=== PATIENT | female | born 2000 | race Caucasian/White ===

== ENCOUNTER 2025-05-30 14:12 | Outpatient (OUT) | payer OTHER, SELFPAY ==
[2025-05-31 11:10] LABS: Rapid Plasma Reagin, Quant Non Reactive titer (NonRea<1:1)
== END 2025-05-30 14:13 | disposition home or self-care (01) ==
LOC: LAB 14:17
PROVIDERS: Visit Provider Obstetrics & Gynecology
DX: Z20.2 Contact with and (suspected) exposure to infections with a predominantly sexual mode of transmission (principal); Z33.2 Encounter for elective termination of pregnancy; Z01.419 Encounter for gynecological examination (general) (routine) without abnormal findings
CPT/HCPCS: 36415; 84702; 86592; 87340; 87389; 88175

== ENCOUNTER 2025-05-30 22:34 | Outpatient (REF) | payer OTHER, SELFPAY ==
--- OUTSIDE RECORDS SUMMARY | 2024-05-03 09:08 | XMS_ITS | Continuity of Care Document ---
Author Organization [facility] Address [address] [place] [phone] Phone Care Team Providers Care Head Inspector Name Role Phone NIALL Stewart, PM, Jigna Unavailable Unavailable Allergies, Adverse Reactions, Alerts Substance Reaction Status Criticality No Known Allergies Active No Inform ation Medications Medication Instructions Dosage Effective Dates (start - stop) Status Comments sertraline 50 mg tablet take 1 tablet by oral route every day 50 MG - Active Depo-Provera 150 mg/mL intramuscular suspension inject 1 milliliter by intramuscular route every 3 months 150 MG - Active Procedures Procedure Date OFFICE/OUTPATIENT VISIT, EST LDL-C <100 MG/DL DIAST BP 80-89 MM HG SYST BP < 130 MM HG OFFICE/OUTPATIENT VISIT, EST ROUTINE VENIPUNCTURE OFFICE/OUTPATIENT VISIT, EST Bp scrn perf rec interval LDL-C <100 MG/DL DIAST BP < 80 MM HG SYST BP < 130 MM HG MED LIST DOCD IN RD RVW MEDS BY RX/DR IN RD PT TOBACCO USE DONE RCVD TLK Pos clin depres scrn f/u doc PSYTX PT&/FAMILY 60 MINUTES ROUTINE VENIPUNCTURE OFFICE/OUTPATIENT VISIT, EST PSYTX PT&/FAMILY 60 MINUTES PSYTX PT&/FAMILY 60 MINUTES ROUTINE VENIPUNCTURE PREV VISIT, NEW, AGE 18-39 Advance Directives Directive Yes / No Effective Date File Name No Information Encounters Encounter Description Practice Location Reason(s) For Visit Diagnoses Date Provider Providers Copied on Encounter [facility], [address] [place] [address], [id number] , tel: [phone] OVE Encounter for general file keeper exam w/o abnormal findingEncounter for general file keeper exam w/o abnormal finding [facility] [address] [place] [address], [id number], . tel: [phone] OFFICE/OUTPA TIENT VISIT, [facility], [address] [place] [address], [id number] , tel: [phone] [facility] F/U Anx & Dep (chief complaint) Dysthymic disorderGeneralized Anxiety DisorderBorderline personality disorderPTSD (post-traumatic stress disorder)Body mass index [BMI] 19.9 or less, adultMarijuana dependenceCaffeine use [address] [facility]. [address] [place] [address], [id number], . tel: [phone] OFFICE/OUTPA TIENT VISIT, [facility], [address] [place] [address], [id number] , tel: [phone] [facility] weight f/u (chief complaint) Body mass index [BMI] 19.9 or less, adultWeight loss, unintentionalTobacc o dependenceMarijuana dependenceDysthymic disorderAsymptomati c bradycardia 4 Reyna Gutierrez. [address] [place] [address], [id number], . tel: [phone] [facility], [address] [place] [address], [id number] , tel: [phone] [place] [address] Weight loss, unintentional 4 Reyna PIÑA-Anthony Gutierrez. [address] [place] [address], [id number], [place]. tel: [phone] OFFICE/OUTPA TIENT VISIT, [facility], [address], [place], [id number] , [place] tel: [phone] [facility] Establish Care (chief complaint) Dysthymic disorderGeneralized Anxiety DisorderBody mass index [BMI] 19.9 or less, adultBorderline personality disorderPTSD (post-traumatic stress disorder)Weight loss, unintentional 4 Wai Benito. [address] [place] [address], [id number], [place]. tel: [phone] PSYTX PT&/FAMILY 60 MINUTES [facility], [address] [place] [address], [id number] , [place] tel: [phone] [facility] Dysthymic disorderGeneralized Anxiety DisorderBorderline personality disorderPTSD (post-traumatic stress disorder)Weight loss, unintentionalBody mass index [BMI] 19.9 or less, adult 4 Baus Camilo Smith . [address] [place] [address], [address], [place]. tel: [phone] [facility], [address] [place] [address], [id number] , [place] tel: [phone] [facility] lab draw (chief complaint) Weight loss, unintentionalDysthy marianne disorderGeneralized Anxiety Disorder 4 Reyna PIÑA-Anthony Gutierrez. [address] [place], [address], [place]. tel: [phone] OFFICE/OUTPA TIENT VISIT, [facility], [address] [place] [address], [id number] , [place] tel:+ [phone] [facility] review labs (chief complaint) Decreased thyroid stimulating hormone (TSH) levelDysthymic disorderPerson consulting for explanation of examination or test findingsBody mass index [BMI] 19.9 or less, adult 4 [facility] AUTOMATIC OVEN OPERATOR GEOSPATIAL IMAGERY INTELLIGENCE ANALYST-C Brenda. [address] [place], [address], [place]. tel: [phone] PSYTX PT&/FAMILY 60 MINUTES [facility], [address] [place] [address], [id number] , [place] tel: [phone] [facility] Dysthymic disorderGeneralized Anxiety Disorder 4 [facility] Ps[facility] D Evane . [address] [place], [address], [place]. tel: [phone] PSYTX PT&/FAMILY 60 MINUTES [facility], [address] [place] [address], [id number] , [place] tel: [phone] [facility] Dysthymic disorderGeneralized Anxiety DisorderDecreased thyroid stimulating hormone (TSH) level 3 [facility] Ps[facility] Dennis Smith . [address] [place], [address], [place]. tel: [phone] [facility], [address] [place] [address], [id number] , [place] tel: [phone] [facility] Olivier Zimmer Decreased thyroid stimulating hormone (TSH) levelWeight loss, unintentional 3 [facility] GE[facility] INTELLIGENCE ANALYST-C Brenda. [address] [place], [address], [place]. tel: [phone] PREV VISIT, NEW, AGE 18-39 [facility], [address] [place] [address], [id number] , [place] tel: [phone] [facility] Establish care (chief complaint) Lab draw (chief complaint) NauseaEncounter for general adult medical examination without abnormal findingsMarijuana dependenceTobacco dependenceMother currently breast-feedingMood disorderBody mass index [BMI] 19.9 or less, adult 3 [facility] GEOSPATIAL IMAGERY INTELLIGENCE ANALYST-C Brenda. [address] [place] [address], [address], [place]. tel: [phone] Family History Family Member Type Diagnosis Age At Onset Mother Problem Hypertension Immunizations Vaccine Date Status Comments Spikevax 12y+ refused Source: New Im munization Record Flulaval/ Fluarix refused Source: Ne w Immunization Record Payers Payer name Insurance type Covered libertarian ID Yamel escobar(s) [employer] CFC [id number] Medicaid Wrap - [facility] [place] [id number] [employer] CFC [id number] [id number] Medicaid Wrap - [employer] MC [id number] Social History Type Description Quantity Date Captured Comments Alcohol Use Details Unknown Caffeine Use Details Unknown Tobacco Use Status Smoking Status No Information Sex Female Sexual Orientation Straight or heterosexual Gender Identity Female Chief Complaint And Reason For Visit No Information Reason For Referral Reason For Referral No Information Plan Of Treatment Date Type Action Status Goal Influenza vaccine. Due on due Goal PAP. Due on due Goal Lipid panel. Due on due Goal Depression screening. Due on due Goal Hepatitis C screening. Due o n due Goal Tdap Vaccine. Due on 2023 due Goal Tdap. Due on due Goal RLP. Due on due Goal Unhealthy drug use screening . Due on due Goal PRAPARE ASSESSMENT. Due on due Goal Tdap. Due on due Goal Lipid panel. Due on due Goal RLP. Due on due Goal Depression screening. Due on due Goal Influenza vaccine. Due on due Goal PRAPARE ASSESSMENT. Due on due Goal Tdap Vaccine. Due on 2023 due Goal Hepatitis C screening. Due o n due Goal Unhealthy drug use screening . Due on due Goal PAP. Due on due Goal Tobacco cessation counseling completed Goal Unhealthy drug use screening . Due on due Goal PAP. Due on due Goal Hep A. Due on du e Goal Lipid panel. Due on due Goal Influenza vaccine. Due on due Goal Tdap. Due on due Goal Hepatitis C screening. Due o n due Goal RLP. Due on due Goal Depression screening. Due on due Goal PRAPARE ASSESSMENT. Due on due Goal Tdap Vaccine. Due on 2023 due Goal Hep A. Due on du e Goal PRAPARE ASSESSMENT. Due on due Goal Lipid panel. Due on due Goal PAP. Due on due Goal Influenza vaccine. Due on due Goal RLP. Due on due Goal Unhealthy drug use screening . Due on due Goal Depression screening. Due on due Goal Tdap Vaccine. Due on 2023 due Goal Tdap. Due on due Goal Hepatitis C screening. Due o n due Goal PRAPARE ASSESSMENT. Due on due Goal Depression screening. Due on due Goal Lipid panel. Due on due Goal Unhealthy drug use screening . Due on due Goal Hepatitis C screening. Due o n due Goal PAP. Due on due Goal RLP. Due on due Goal Tdap. Due on due Goal Tdap Vaccine. Due on 2023 due Goal Influenza vaccine. Due on due Goal Unhealthy drug use screening . Due on due Goal Lipid panel. Due on due Goal Tdap. Due on due Goal Hep A. Due on du e Goal Influenza vaccine. Due on due Goal PAP. Due on due Goal RLP. Due on due Goal Depression screening. Due on due Goal Hepatitis C screening. Due o n due Goal Tdap Vaccine. Due on 2023 due Goal PRAPARE ASSESSMENT. Due on due Goal Tobacco cessation counseling completed Goal Lifestyle education regardin g diet completed Goal Hep A. Due on du e Goal Tdap. Due on due Goal Unhealthy drug use screening . Due on due Goal RLP. Due on due Goal Lipid panel. Due on due Goal PRAPARE ASSESSMENT. Due on due Goal PAP. Due on due Goal Hepatitis C screening. Due o n due Goal Influenza vaccine. Due on due Goal Tdap Vaccine. Due on 2023 due Goal Depression screening. Due on due Goal RLP. Due on due Goal Depression screening. Due on due Goal Tdap. Due on due Goal Unhealthy drug use screening . Due on due Goal Hepatitis C screening. Due o n due Goal Lipid panel. Due on due Goal Influenza vaccine. Due on due Goal Tdap Vaccine. Due on 2023 due Goal PAP. Due on due Goal PRAPARE ASSESSMENT. Due on due Goal Tobacco cessation counseling completed Goal Dietary education for weight gain completed Goal Unhealthy drug use screening . Due on due Goal Tdap. Due on due Goal Tdap Vaccine. Due on 2023 due Goal RLP. Due on due Goal Lipid panel. Due on due Goal PRAPARE ASSESSMENT. Due on due Goal Influenza vaccine. Due on due Goal PAP. Due on due Goal Depression screening. Due on due Goal Hep A. Due on du e Goal Hepatitis C screening. Due o n due Goal RLP. Due on due Goal PRAPARE ASSESSMENT. Due on due Goal PAP. Due on due Goal Tdap. Due on due Goal Unhealthy drug use screening . Due on due Goal Tdap Vaccine. Due on 2022 due Goal Hepatitis C screening. Due o n due Goal Depression screening. Due on due Goal Influenza vaccine. Due on due Goal Lipid panel. Due on due Goal PRAPARE ASSESSMENT. Due on due Goal PAP. Due on due Goal Unhealthy drug use screening . Due on due Goal RLP. Due on due Goal Hep A. Due on du e Goal Influenza vaccine. Due on due Goal Tdap Vaccine. Due on 2022 due Goal Depression screening. Due on due Goal Tdap. Due on due Goal Hepatitis C screening. Due o n due Goal Lipid panel. Due on due Goal Unhealthy drug use screening . Due on due Goal Hepatitis C screening. Due o n due Goal Tdap. Due on due Goal Lipid panel. Due on due Goal RLP. Due on due Goal PAP. Due on due Goal Hep A. Due on du e Goal Tdap Vaccine. Due on 2022 due Goal Influenza vaccine. Due on De due Goal PRAPARE ASSESSMENT. Due on due Goal Depression screening. Due on due Goal Tobacco cessation counseling completed Goal Dietary education for weight gain completed Referral Ordered: X-RAY EXAM CHEST 2 VIEWS ordered Referral Ordered: Referrals: Endocrinology, Diabetes and Metabolism. Evaluate and treat ordered Referral Ordered: US Exam Of Head & Neck thyroid ordered Referral Ordered: Referrals: Psychiatry. Evaluate and treat Appointment date/timeframe: 10/28/2023 ordered History Of Present Illness Encounter Date Complaint History Of Prese nt Illness F/U Anx & Dep Zoloft last coup le of days.Pap: Dr. Escaloan Endocrine: Saw them but they said they couldn't help her. (scheduled with Diann Sanchez)//Jose MEJIA weight f/u Patient here to f/u on weight. Also labs and urine. Patient did see endocrine yesterday. Patient states that it was not a good visit. That there was not much he could offer her. Blane Ko. I have reviewed all above information and agree. Has not started sertraline yet. Plans on starting today. Saw Dr. Cabello for low/borderline low TSH and thyroid U/S with nodules. Pt reports was told I don't know why you were even sent to me. Theres not much I can do . Explained to pt referral was more so to r/o thyroid causes as reason for unexpected weight loss over the past year. C/O vaginal bleeding that is constant and light flow but darker brown in color. Will have a period and still has a discharge. Denies clots. Is on Depo. Enc to F/U with Dr. Escalona TEST DRILLER. Abel WALLS Establish Care Patient is here to establish care. Patient states she is experiencing anxiety and depression. Patient states she feels as though the symptoms exacerbated . In addition, patient experienced an ectopic prior to having her son who is now 8 months old. Patient states she believes the symptoms became heightened then as well. Patient states she is having struggles with weight. Was previously 180 pounds, but is now only 126 pounds. Patient states in high school she was diagnosed with anxiety and depression and was prescribed lexapro. States this made her feel like a zombie. Patient states she is struggling and is socially burnt out. For example, patient states she has been with her significant other for three years, and she doesn't converse with him majority of the time because she feels drained. In addition, patient states, you know that feeling when you lose a loved one, that true ache and heartbreak, I feel that in me at all times. I will be driving down the road, and I just break down. Has an appointment with [facility] 12/08/23, and is scheduled to have thyroid US completed tomorrow. Denies any other concerns. Patient smokes cigarettes daily, vapes at times.//Abram MEJIA.Flu vaccine: refused.//Abram MEJIA.Covid vaccine: refused.//Abram MEJIA.Spent over 70 minutes with patient discussing her history, educating patient on treatment options/diagnosis, reviewing previous notes, coordinating care with counselor, reviewing labs. lab draw Obtained lab dra miller from [facility] x1 attempt.Cristóbal review labs Patient here to review labs. Patient states things are the sames at before. Patient does have appt with Dr. Eric and with Jigna. Patient states that there was an issues with U/S. She has not heard back from [facility]. Patient has no issues or concerns.Blane Ko. I have reviewed all above information and agree. Has appointment with endocrine on 12/08/2023. Still with anxiety and depression. No SI/HI. Is . Has appt with Jigna Carreno for mental health this week. Has seen Dr. [facility] for counseling. Does have # to [facility] hotline. Has not needed to call the hotline. Denies needs/concerns today. Abel WALLS [facility] care Presents to [facility]. States she had an ectopic prior to her current child who is 7 months old. States since then she has had trouble eating/gaining weight. Admits to some depression but when she tries to eat she gags/gets nauseous. States her OB put her on a mood stabilizer but she is not taking regularly and is unsure of name of medication. Pt is currently also. Alejandra Gutierrez RN I have reviewed all above information and agree. Called suicide hotline on thursday. Reports wont kill myself because I have kids and I wouldnt do that to them, but if I didnt have kids I dont know what my purpose would be . Used to attend counseling when younger. Smokes marijuana to help gain weight. Moved here from [place] in 2020. Is concerned about weight loss. Began 12-13 months ago after ectopic . Was 175 lbs a year ago. Has lost 50 lbs in about a year. Believes weight loss triggered from depression of ectopic . Later became and delivered healthy baby. Denies hx eating disorders. Baby is gaining weight and gaining. Had stress and depression afterward. Had hard time gaining weight with . Still gets periods. Feels weak and fatigued. Believes her depression is causing the weight loss. Eats junk food . Yesterday ate a few snacks but was nauseated when tried to eat. Able to eat small portions throughout the day most days. Cannot eat large meals. Will gag after a few bites. Denies hx gastric bypass, GERD and stomach issues. Is . Had baby 7 months ago. Has not had PCP in since a child. Has hx anxiety & bipolar depression. Did call suicide hotline thursday. OB-TEST DRILLER is Dr. Escalona, Denies needs/concerns today. [employer] Lab draw Lab draw from [facility] x 1 attempt, tolerated well, pressure dressing to area. Alejandra Gutierrez RN Functional Status Date Functional Assessmen t No Information Instructions Date Instruction Additional Infor flavia Giving encouragement to exercise Related to Body mass index [BMI] 19.9 or less, adult Lifestyle education regarding di et Related to Body mass index [BMI] 19.9 or less, adult Dietary education for weight gai n Related to Body mass index [BMI] 19.9 or less, adult Dietary education for weight gai n Related to Body mass index [BMI] 19.9 or less, adult Assessments Type Assessment Date assessment Encounter for general file keeper exam w /o abnormal finding Patient Care Teams Name Effective Dates (start - stop) Status Members No Information
--- OUTSIDE RECORDS SUMMARY | 2025-05-26 06:00 | XMS_ITS ---
Author Organization [facility] Address [address] [facility] [address] Care Team Providers Care Chemical Test Engineer Name Role Phone Dr. Bennie [place] Primary Care Provider [phone] Nargis GallardoSophiaHaileychristine Morataya [phone] REASON FOR VISIT PROPHY Encounters Encounter Location Date Provider Diagnosis [facility] [address] [place] [place] [address] 05/26/2025 Hailey Gallardo Plan Of Treatment No Information Progress Notes * MT COOMBSEDOB:2000 ( 24 yo F)Acc No.[id number]:05/26/2025 Patient: SUZIE HYMAN Provider: Jeaneth Gallardo :2000 A ge:24 Y S ex:Female Date:05/26/2025 Address:[facility] [address] [id number] Pcp:Dr. Bennie [place] Subjective: * Chief Complaints: * 1 . PROPHY. * Medical History: Objective: * Vitals: Assessment: Plan: * Treatment: * Images: * Electronic signature of Shirlene Gallardo on 05/30/2025 at 01:24 PM EDT Sign off status: Pending * Provider: Jeaneth Gallardo Date: 05/26/2025 Generated for Jamison jara/Tierneyg/eTransmitting on: 05/30/2025 01:24 PM EDT
--- OUTSIDE RECORDS SUMMARY | 2025-05-30 13:30 | XMS_ITS | Encounter Summary ---
Author Organization [facility] Address [address] [place] [address] Care Team Providers Care Camp Cook Name Role Phone Unavailable Primary Care Provider Unavailabl e Reason for Visit * Reason Comments Well Women Visit [facility] Screening ER Follow-up Encounter Details Date Type Department Care Team (Late st Contact Info) Description 05/30/2025 1:30 PM EDT Office Visit [facility] [address] [place] [id number] Fredi Escalona DO [address] [place], [place] [id number] Well woman exam with routine gynecological exam; Vaginal discharge; STD exposure; Self-induced ; Follow-up exam; Sexually transmitted disease exposure Social History Tobacco Use Types Packs/Day Years Used Date Smoking Tobacco: Every Day Cigarettes Smokeless Tobacco: Never Comments:Heavy smoker Alcohol Use Standard Drinks/Week Comments Yes 0 (1 standard drink = 0.6 oz pur e alcohol) Occasional Comments Unknown Sex and Gender Information Value Date Recorded Sex Assigned at Not on file Legal Sex Female 11:37 PM EDT Gender Identity Not on file Sexual Orientation Not on file documented as of this encounter Last Filed Vital Signs Vital Sign Reading Time Taken Comments Blood Pressure 112/78 05/30/2025 1:27 PM EDT Pulse - - Temperature - - Respiratory Rate - - Oxygen Saturation - - Inhaled Oxygen Concentration - - Weight 57.8 kg (127 lb 6.4 oz) 05/30/2025 1:27 P M EDT Height - - Body Mass Index 18.81 12/07/2023 2:39 PM EST documented in this encounter Plan of Treatment Scheduled Orders Name Type Priority Associated Diagnoses Orde r Schedule Pap Smear Pathology and Cytology Routine Well woman exam with routine gynecological exam Ordered: 05/30/2025 SURESWAB(R) ADVANCED VAGINITIS PLUS, TMA Pathology and Cytology Routine Vaginal discharge Ordered: 05/30/2025 CHLAMYDIA TRACHOMATIS (GENITO/STI) Lab Routine STD exposure Ordered: 05/30/2025 Neisseria gonorrhea DNA probe, direct Lab Routine STD exposure Ordered: 05/30/2025 HIV-1 and HIV-2 antibodies Lab Routine Sexually transmitted disease exposure Ordered: 05/30/2025 Hepatitis B surface antigen Lab Routine Sexually transmitted disease exposure Ordered: 05/30/2025 RPR Lab Routine Sexually transmitted disease exposure Ordered: 05/30/2025 hCG, quantitative Lab Routine Self-induced Ordered: 05/30/2025 documented as of this encounter Visit Diagnoses Diagnosis Well woman exam with routine gynecological exam Routine gynecological examination Vaginal discharge Leukorrhea, not specified as infective STD exposure Self-induced Unspecified illegally induced without mention of complication Follow-up exam Unspecified follow-up examination Sexually transmitted disease exposure Contact with or exposure to venereal diseases documented in this encounter
--- OUTSIDE RECORDS SUMMARY | 2025-05-30 22:37 | XMS_ITS | Patient Health Record ---
Demographics Address [address] [place] [address] Mobile Email Address Preferred Language en Marital Status unmarried Oriental Orthodox Affiliation Unknown Race White Ethnic Group Not or Lati no Author Organization [facility] es Address [address] [place] [address] Care Team Providers Care Is Manager Name Role Phone Dr. Bennie Arthur Primary Care Provider Hailey Gallardo Unavailable [phone] Janki Lyn Unavailable [phone] Reason For Referral No Information Encounters Encounter Location Date Provider Diagnosis [facility] [address] [place] [address] 12/13/2024 Janki Lyn Encounter for dental examination and cleaning with abnormal findings Z01.21 ; Other dental procedure status Z98.818 ; Disturbances in tooth eruption K00.6 ; Necrosis of pulp K04.1 ; Acute gingivitis, plaque induced K05.00 ; Dental caries on pit and fissure surface penetrating into dentin K02.52 and Arrested dental caries K02.3 Assessments Encounter Date Diagnosis (ICD Code) Assessment Notes Treatment Notes Treatment Clinical Notes Section Notes 12/13/2024 Encounter for dental examination and cleaning with abnormal findings (ICD-10 - Z01.21) 12/13/2024 Other dental procedure status (ICD-10 - Z98.818) 12/13/2024 Disturbances in tooth eruption (ICD-10 - K00.6) 12/13/2024 Necrosis of pulp (ICD-10 - K04.1) 12/13/2024 Acute gingivitis, plaque induced (ICD-10 - K05.00) 12/13/2024 Dental caries on pit and fissure surface penetrating into dentin (ICD-10 - K02.52) 12/13/2024 Arrested dental caries (ICD-10 - K02.3) Plan Of Treatment No Information
--- OUTSIDE RECORDS SUMMARY | 2025-05-30 22:37 | XMS_ITS | Clinical Summary ---
Author Organization [facility] Healthcare Address [address] [place] [address] Care Team Providers Care Pharmaceutical Assistant Name Role Phone Unavailable Primary Care Provider Unavailabl e Allergies No known active allergies Medications medroxyPROGESTERon e (Depo-Provera) 150 MG/ML injectionIndicatio ns:Encounter for initial prescription of contraceptives, unspecified contraceptive Inject 1 mL (150 mg) into the shoulder, thigh, or buttocks every 3 (three) months 1 mL 3 4 Active sertraline (Zoloft) 25 MG tablet TAKE 1 TABLET BY MOUTH ONCE DAILY FOR 7 DAYS THEN INCREASE TO 2 TABLETS DAILY 4 Active Encounters Date Type Department Care Team Description 05/30/2025 1:30 PM EDT Office Visit [facility] [place] [address] [place] [phone] Fredi Escalona, DO Well woman exam with routine gynecological exam; Vaginal discharge; STD exposure; Self-induced ; Follow-up exam; Sexually transmitted disease exposure 05/30/2025 Clinisync Result Encounter [facility] External Department Unsolicited Fredi Escalona, DO 05/30/2025 Bamboo flowsheet [facility] [place] [address] [place] [address] Fredi Escalona, DO 05/26/2025 Abstract [facility] [place] [address] [place] [address] Fredi Escalona, DO 04/12/2025 Travel from Last 3 Months Family History Medical History Relation Name Comments Hypertension Mother Relation Name Status Comments Father Alive Mother Alive Social History Tobacco Use Types Packs/Day Years Used Date Smoking Tobacco: Every Day Cigarettes Smokeless Tobacco: Never Tobacco Cessation:Ready to Q uit: Not Asked; Counseling Given: Not Answered Comments:Heavy smoker Alcohol Use Standard Drinks/Week Comments Yes 0 (1 standard drink = 0.6 oz pur e alcohol) Occasional Comments Unknown Sex and Gender Information Value Date Recorded Sex Assigned at Not on file Legal Sex Female 11:37 PM EDT Gender Identity Not on file Sexual Orientation Not on file Last Filed Vital Signs Vital Sign Reading Time Taken Comments Blood Pressure 112/78 05/30/2025 1:27 PM EDT Pulse 95 12/07/2023 2:39 PM EST Temperature - - Respiratory Rate 18 12/07/2023 2:39 PM EST Oxygen Saturation - - Inhaled Oxygen Concentration - - Weight 57.8 kg (127 lb 6.4 oz) 05/30/2025 1:27 P M EDT Height 175.3 cm (5' 9 ) 12/07/2023 2:39 PM EST Body Mass Index 18.81 12/07/2023 2:39 PM EST Plan of Treatment Not on file Procedures Procedure Name Priority Date/Time Associated Diagnosis Comments [facility] PREG QUANT HCG Routine 05/30/2025 2: 30 PM EDT from Last 3 Months Results * [facility] PREG QUANT HCG (05/30/2025 2:30 PM EDT) Pathologist [facility] HCG QUANTITATIVE 2 mIU/mL [facility] Comment: 5-50 0.2-1 WEEK 50-500 1-2 WEEKS 100-5,000 2-3 WEEKS 500-10,000 3-4 WEEKS 1,000-50,000 4-5 WEEKS 10,000-100,000 5-6 WEEKS 15,000-200,000 6-8 WEEKS 10,000-100,000 2-3 MONTHS 05/30/2025 2:30 PM EDT 05/30/2025 2:30 PM EDT Narrative [facility] - 05/30/2025 3:00 PM EDT us Fredi Iqra DO [facility] Final Result [facility] from Last 3 Months Insurance [employer]
--- OUTSIDE RECORDS SUMMARY | 2025-05-30 22:37 | XMS_ITS | Encounter Summary ---
Author Organization [facility] Address [address] [place] [address] Care Team Providers Care Campus Receptionist Name Role Phone Unavailable Primary Care Provider Unavailabl e Encounter Details Date Type Department Care Team (Late st Contact Info) Description 05/30/2025 Clinisync Result Encounter [facility] External Department Unsolicited Fredi Escalona, DO [address] [facility] [place] [address] Social History Tobacco Use Types Packs/Day Years [...] on file documented as of this encounter Plan of Treatment Not on file documented as of this encounter Procedures Procedure Name Priority Date/Time Associated Diagnosis Comments [facility] PREG QUANT HCG Routine 05/30/2025 2: 30 PM EDT documented in this encounter Results * [facility] PREG QUANT HCG (05/30/2025 2:30 PM EDT) HCG QUANTITATIVE 2 mIU/mL [facility] Comment: 5-50 0.2-1 WEEK 50-500 1-2 WEEKS 100-5,000 2-3 WEEKS 500-10,000 3-4 WEEKS 1,000-50,000 4-5 WEEKS 10,000-100,000 5-6 WEEKS 15,000-200,000 6-8 WEEKS 10,000-100,000 2-3 MONTHS 05/30/2025 2:30 PM EDT 05/30/2025 2:30 PM EDT Narrative [facility] - 05/30/2025 3:00 PM EDT us Fredi Iqra DO [facility] Final Result Performing Organization Address City/State/[facility] Co de Phone Number [facility] documented in this encounter Visit Diagnoses Not on filedocumented in this encounter
--- OUTSIDE RECORDS SUMMARY | 2025-05-30 22:37 | XMS_ITS | Encounter Summary ---
Author Organization [facility] Address [address] [place] [address] Care Team Providers Care Cognos Analyst Name Role Phone Unavailable Primary Care Provider Unavailabl e Encounter Details Date Type Department Care Team (Late st Contact Info) Description 05/30/2025 Bamboo flowsheet [facility] [address] [place] [phone] Fredi Escalona, DO [address] [facility] [address] [place], [place] [id number] Social History Tobacco Use Types Packs/Day Years [...] on file documented as of this encounter Visit Diagnoses Not on filedocumented in this encounter
== END 2025-05-30 22:35 | disposition home or self-care (01) ==
LOC: LAB 22:34
PROVIDERS: Visit Provider Obstetrics & Gynecology
DX: Z01.419 Encounter for gynecological examination (general) (routine) without abnormal findings (principal)
CPT/HCPCS: 88175

== ENCOUNTER 2025-06-21 15:41 | Outpatient (REF) | payer OTHER, SELFPAY ==
--- OUTSIDE RECORDS SUMMARY | 2025-05-26 06:00 | XMS_ITS ---
Author Organization [facility] Address [address] [place] [address] Care Team Providers Care Sulphate Tester Name Role Phone Dr. Bennie [place] Primary Care Provider [phone] Nargis GallardoSophiaHaileychristine Morataya [phone] REASON FOR VISIT PROPHY Encounters Encounter Location Date Provider Diagnosis [facility] [address] [place] [address] 05/26/2025 Hailey Gallardo Plan Of Treatment No Information Progress Notes * MT COOMBSEDOB:2000 ( 24 yo F)Acc No.[id number]:05/26/2025 Patient: SUZIE HYMAN Provider: Jeaneth Gallardo :2000 A ge:24 Y S ex:Female Date:05/26/2025 Address:[facility] [address] [id number] Pcp:Dr. Bennie [place] Subjective: * Chief Complaints: * 1 . PROPHY. * Medical History: Objective: * Vitals: Assessment: Plan: * Treatment: * Images: * Electronic signature of Shirlene Gallardo on 06/29/2025 at 03:44 PM EDT Sign off status: Pending * Provider: Jeaneth aGllardo Date: 05/26/2025 Generated for Jamison ng/Fasherlyg/eTransmitting on: 06/29/2025 03:44 PM EDT
--- OUTSIDE RECORDS SUMMARY | 2025-06-21 15:30 | XMS_ITS | Encounter Summary ---
Author Organization [facility] Address [address] [place] [address] Care Team Providers Care Funding Analyst Name Role Phone Unavailable Primary Care Provider Unavailabl e Reason for Visit * Reason Comments Abnormal Pap Smear Pt present today for a Colposcopy. Pt had an abnormal pap smear (ASCUS HPV+) Encounter Details Date Type Department Care Team (Latest Contact Info) Description 06/21/2025 3:30 PM EDT Procedure Visit [facility] [address] [phone] Fredi Escalona DO [address] [facility] [place] [address] ASCUS with positive high risk HPV cervical; Urinary tract infection symptoms; Encounter for initial prescription of contraceptives, unspecified contraceptive Social History Tobacco Use Types Packs/Day Years Used Date Smoking Tobacco: Every Day Cigarettes Smokeless Tobacco: Never Comments:Heavy smoker Alcohol Use Standard Drinks/Week Comments Yes 0 (1 standard drink = 0.6 oz pur e alcohol) Occasional Comments No Sex and Gender Information Value Date Recorded Sex Assigned at Not on file Legal Sex Female 11:37 PM EDT Gender Identity Not on file Sexual Orientation Not on file documented as of this encounter Last Filed Vital Signs Vital Sign Reading Time Taken Comments Blood Pressure 112/70 06/21/2025 3:51 PM EDT Pulse - - Temperature - - Respiratory Rate - - Oxygen Saturation - - Inhaled Oxygen Concentration - - Weight 57.6 kg (127 lb) 06/21/2025 3:51 PM EDT Height 175.3 cm (5' 9 ) 06/21/2025 3:51 PM EDT Body Mass Index 18.75 06/21/2025 3:51 PM EDT documented in this encounter Progress Notes * Tea Anguiano, [employer] - 06/21/2025 3:30 PM EDTAssociated Order(s): Colposcopy Post-Procedure Diagnose(s): ASCUS with positive high risk HPV cervical Reason for Appointment: Patient ID: Vani Diaz is a 24 y.o. female who presents for Abnormal Pap Smear (Pt present today for a Colposcopy. Pt had an abnormal pap smear (ASCUS HPV+)) Patient presents today for a Colposcopy appointment. MEDICATIONS Current Outpatient Medications Medication Instructions medroxyPROGESTERone (DEPO-PROVERA) 150 mg, Intramuscular, Every 3 months nitrofurantoin (macrocrystal-monohydrate) (MACROBID) 100 mg, Oral, 2 times daily phenazopyridine (PYRIDIUM) 100 mg, Oral, 3 times daily PRN sertraline (Zoloft) 25 MG tablet TAKE 1 TABLET BY MOUTH ONCE DAILY FOR 7 DAYS THEN INCREASE TO 2 TABLETS DAILY ALLERGIES No Known Allergies PROBLEMS Active Ambulatory Problems Diagnosis Date Noted No Active Ambulatory Problems Resolved Ambulatory Problems Diagnosis Date Noted No Resolved Ambulatory Problems Past Medical History: Diagnosis Date Abnormal weight loss Anxiety Asthma (HCC) Depression H/O migraine History of ectopic History of miscarriage Lymphadenopathy Nontoxic single thyroid nodule Other specified abnormal findings of blood chemistry Smoker HISTORY PAST MEDICAL HISTORY SOCIAL HISTORY Past Medical History: Diagnosis Date Abnormal weight loss Anxiety Asthma (HCC) Depression H/O migraine History of ectopic History of miscarriage Lymphadenopathy Nontoxic single thyroid nodule Other specified abnormal findings of blood chemistry Smoker Social History Tobacco Use Smoking status: Every Day Types: Cigarettes Smokeless tobacco: Never Tobacco comments: Heavy smoker Substance Use Topics Alcohol use: Yes Comment: Occasional Drug use: Never FAMILY HISTORY Family History Problem Relation Name Age of Onset Hypertension Mother SURGICAL HISTORY Past Surgical History: Procedure Laterality Date DILATION AND CURETTAGE OF UTERUS ectopic SALPINGECTOMY Left 04/11/2022 REVIEW OF SYSTEMS Review of Systems: Review of Systems Constitutional: Negative. HENT: Negative. Eyes: Negative. Respiratory: Negative. Cardiovascular: Negative. Gastrointestinal: Negative. Genitourinary: Negative. Musculoskeletal: Negative. Skin: Negative. Neurological: Negative. All other systems reviewed and are negative. Hematological: Negative. Endocrine: Negative. Allergic/Immunologic: Negative. OBJECTIVE Objective: Physical Exam Constitutional: Appearance: Normal appearance. She is well-developed. Genitourinary: Vulva normal. Cardiovascular: Rate and Rhythm: Normal rate and regular rhythm. Pulmonary: Effort: Pulmonary effort is normal. Breath sounds: Normal breath sounds. Abdominal: General: Bowel sounds are normal. There is no distension. Palpations: Abdomen is soft. Tenderness: There is no abdominal tenderness. There is no guarding or rebound. Musculoskeletal: General: No swelling. Normal range of motion. Right lower leg: No edema. Left lower leg: No edema. Neurological: Mental Status: She is alert and oriented to person, place, and time. Skin: General: Skin is warm and dry. Psychiatric: Mood and Affect: Mood normal. Behavior: Behavior normal. Vitals and nursing note reviewed. Exam conducted with a bagman/woman present. Vitals: Estimated body mass index is 18.75 kg/m?? as calculated from the following: Height as of this encounter: 5' 9 . Weight as of this encounter: 127 lb. BP: 112/70 No LMP recorded (approximate). ASSESSMENT & PLAN Assessment/Plan Encounter Diagnosis: ICD-10-CM 1. ASCUS with positive high risk HPV cervical R87.610 Colposcopy R87.810 POCT , urine manually resulted 2. Urinary tract infection symptoms R39.9 phenazopyridine (Pyridium) 100 MG tablet nitrofurantoin, macrocrystal-monohydrate, (Macrobid) 100 MG capsule Colposcopy Date/Time: 06/21/2025 4:25 PM Performed by: Fredi Escalona DO Authorized by: Fredi Escalona DO Consent: Consent obtained: Written Consent given by: Patient Indication: Other indication(s): clinical abnormality Pre-procedure: Speculum was placed in the vagina: yes Procedure: Colposcopy with: endocervical curettage Cervix visibility: fully visualized Post-procedure: Patient tolerance of procedure: Patient tolerated the procedure well with no immediate complications Comments: Colposcopy: Patient is doing well and has no complaints. Pap results have been reviewed with the patient in great detail and patient voiced understanding. Patient presents today for a Colposcopy with ECC. Patient was placed in dorsal lithotomy position with feet in stirrups, a sterile speculum was placed into the vagina and the cervix was visualized. Cervix was cleansed with vinegar. Postprocedural instructions given. All if patients questions answered and she expressed understanding. Advised to call in interim with questions or concerns. Follow Up: Patient is to return in 6 months for Repeat Pap. Documented by Tea Anguiano LPN on behalf of: Fredi Escalona DO documented in this encounter Plan of Treatment Upcoming Encounters Date Type Department Care Team (Late st Contact Info) Description 12/26/2025 2:00 PM EST Procedure [facility] [address] [address] Fredi Escalona DO [address] [facility] [place] [address] Scheduled Orders Name Type Priority Associated Diagnoses Orde r Schedule Colposcopy Procedures Routine ASCUS with positive high risk HPV cervical Expected: 06/21/2025 (Approximate), Expires: 06/21/2026 documented as of this encounter Procedures Procedure Name Priority Date/Time Associated Diagnosis Comments COLPOSCOPY Routine 06/21/2025 4:25 PM EDT ASCUS with positive high risk HPV cervical POCT , URINE Routine 06/21/2025 4:15 PM EDT ASCUS with positive high risk HPV cervical documented in this encounter Results * Colposcopy (06/21/2025 4:25 PM EDT) Tea Romero LPN - 06/21/2025 4:25 PM EDT Tea Anguiano LPN 06/21/2025 4:35 PM Colposcopy Date/Time: 06/21/2025 4:25 PM Performed by: Fredi Escalona DO Authorized by: Fredi Escalona DO Consent: Consent obtained: Written Consent given by: Patient Indication: Other indication(s): clinical abnormality Pre-procedure: Speculum was placed in the vagina: yes Procedure: Colposcopy with: endocervical curettage Cervix visibility: fully visualized Post-procedure: Patient tolerance of procedure: Patient tolerated the procedure well with no immediate complications Comments: Colposcopy: Patient is doing well and has no complaints. Pap results have been reviewed with the patient in great detail and patient voiced understanding. Patient presents today for a Colposcopy with ECC. Patient was placed in dorsal lithotomy position with feet in stirrups, a sterile speculum was placed into the vagina and the cervix was visualized. Cervix was cleansed with vinegar. Postprocedural instructions given. All if patients questions answered and she expressed understanding. Advised to call in interim with questions or concerns. Follow Up: Patient is to return in 6 months for Repeat Pap. Wansheny Iqra DO IN CLINIC/BEDSIDE ORDERABLES Fin al Result * POCT , urine manually resulted (06/21/2025 4:15 PM EDT) Preg Test, Ur Negative Negative Urine 06/21/2025 4:15 PM EDT Wansheny Iqra DO POINT OF CARE TEST ENTER/EDIT OR DERABLES Final Result documented in this encounter Visit Diagnoses Diagnosis ASCUS with positive high risk HPV cervical Urinary tract infection symptoms Encounter for initial prescription of contraceptives, unspecified contraceptive documented in this encounter
--- OUTSIDE RECORDS SUMMARY | 2025-06-29 15:44 | XMS_ITS | Encounter Summary ---
Author Organization [facility] Address [address] [place] [address] Care Team Providers Care Detention Attendant Name Role Phone Unavailable Primary Care Provider Unavailabl e Encounter Details Date Type Department Care Team ([facility] Contact Info) Description 06/05/2025 Orders Only [facility] [address] [place] [address] [place] [phone] Melissa Hemphill LPN [address] [facility] Ricardo [place]A [id number] Social History Tobacco Use Types Packs/Day Years [...] as of this encounter Plan of Treatment Upcoming Encounters Date Type Department Care Team ([facility] Contact Info) Description 12/26/2025 2:00 PM EST Procedure Visit [facility] [address] [place] [address] [place] [phone] Fredi Escalona DO [address] [facility] [address] [place], [place] [id number] documented as of this encounter Procedures Procedure Name Priority Date/Time Associated Diagnosis Comments PAP SMEAR Routine 05/30/2025 12:00 AM EDT documented in this encounter Results * (ABNORMAL) Pap Smear (05/30/2025 12:00 AM EDT) Swab Cervical swab / Unknown us Iqra Nurse [facility] CYTOLOGY ORDERABLES Final Result EXTERNAL LAB documented in this encounter Visit Diagnoses Not on filedocumented in this encounter
--- OUTSIDE RECORDS SUMMARY | 2025-06-29 15:44 | XMS_ITS | Encounter Summary ---
Author Organization [facility] Address [address] [place] [address] Care Team Providers Care Electric System Operator Name Role Phone Unavailable Primary Care Provider Unavailabl e Encounter Details Date Type Department Care Team (Late Contact Info) Description 05/26/2025 Abstract [facility] [address] [place] [address] [place] [phone] Fredi Escalona, DO [address] [facility] [address] [place], [place] [address] Social History Tobacco Use Types Packs/Day Years [...] Upcoming Encounters Date Type Department Care Team ([facility] Contact Info) Description 12/26/2025 2:00 PM EST Procedure Visit [facility] [address] [place] [address] [place] [phone] Fredi Escalona, [address], [facility] documented as of this encounter Visit Diagnoses Not on filedocumented in this encounter
--- OUTSIDE RECORDS SUMMARY | 2025-06-29 15:44 | XMS_ITS | Patient Health Record ---
Demographics Address [address] [facility] [place] [address] Mobile Email Address Preferred Language en Marital Status unmarried Mormonism Affiliation Unknown Race White Ethnic Group Not or Lati no Author Organization [facility] es Address [address] [place] [address] Care Team Providers Care Rate Engineer Name Role Phone Dr. Bennei Arthur Primary Care Provider Hailey Gallardo Unavailable [phone] Janki Lyn Unavailable [phone] Reason For Referral No Information Encounters Encounter Location Date Provider Diagnosis [facility] [address] [place] [address] 12/13/2024 Janki Lyn Encounter for dental examination [...]
--- OUTSIDE RECORDS SUMMARY | 2025-06-29 15:45 | XMS_ITS | Clinical Summary ---
Author Organization [facility] Healthcare Address [address] [place] [address] Care Team Providers Care Yacht Master Name Role Phone Unavailable Primary Care Provider Unavailabl e Allergies No known active allergies Medications sertraline (Zoloft) 25 MG tablet TAKE 1 TABLET BY MOUTH ONCE DAILY FOR 7 DAYS THEN INCREASE TO 2 TABLETS DAILY 4 Active medroxyPROGESTERo ne (Depo-Provera) 150 MG/ML injectionIndicati ons:Encounter for initial prescription of contraceptives, unspecified contraceptive Inject 1 mL (150 mg) into the shoulder, thigh, or buttocks every 3 (three) months 1 mL 3 5 Active medroxyPROGESTERo ne (Depo-Provera) 150 MG/ML injectionIndicati ons:Encounter for initial prescription of contraceptives, unspecified contraceptive Inject 1 mL (150 mg) into the shoulder, thigh, or buttocks every 3 (three) months 1 mL 3 4 025 Discontinu ed(Reorder ) metroNIDAZOLE (Flagyl) 500 MG tabletIndications :BV (bacterial vaginosis) Take 1 tablet (500 mg) by mouth in the morning and 1 tablet (500 mg) before bedtime. Do all this for 7 days. Do not drink alcohol while taking this medication. 14 tablet 5 025 phenazopyridine (Pyridium) 100 MG tabletIndications :Urinary tract infection symptoms Take 1 tablet (100 mg) by mouth 3 (three) times a day as needed for bladder spasms for up to 3 days 9 tablet 5 025 nitrofurantoin, macrocrystal-mono hydrate, (Macrobid) 100 MG capsuleIndication s:Urinary tract infection symptoms Take 1 capsule (100 mg) by mouth in the morning and 1 capsule (100 mg) before bedtime. Do all this for 7 days. 14 capsule 025 Encounters Date Type Department Care Team Description 06/21/2025 3:30 PM EDT [place] [address] Fredi Escalona, ASCUS with positive high risk HPV cervical; Urinary tract infection symptoms; Encounter for initial prescription of contraceptives, unspecified contraceptive 06/05/2025 [place] [address] Melissa Hemphill LPN 06/02/2025 [place] [address] Kelsie Aly MA Error (VOID this visit) 05/31/2025 [place] [address] Kelsie Aly MA 05/30/2025 1:30 PM ED[place] [address] Fredi Escalona, Well woman exam with routine gynecological exam; Vaginal discharge; STD exposure; Self-induced ; Follow-up exam; Sexually transmitted disease exposure 05/30/2025 External Result Encounter [facility] External Department Unsolicited Fredi Escalona, 05/30/2025 Clinisync Result Encounter [facility] External Department Unsolicited Fredi Escalona, 05/30/2025 Bamboo [place] [address] Fredi Escalona, DO 05/26/2025 [place] [address] Fredi Escalona, DO 04/12/2025 Travel from Last [...] Pressure 112/70 06/21/2025 3:51 PM EDT Pulse 95 12/07/2023 2:39 PM EST Temperature - - Respiratory Rate 18 12/07/2023 2:39 PM EST Oxygen Saturation - - Inhaled Oxygen Concentration - - Weight 57.6 kg (127 lb) 06/21/2025 3:51 PM EDT Height 175.3 cm (5' 9 ) 06/21/2025 3:51 PM EDT Body Mass Index 18.75 06/21/2025 3:51 PM EDT Plan of Treatment Upcoming Encounters Date Type Department Care Team (Late st Contact Info) Description 12/26/2025 2:00 PM EST Procedure Visit [facility] [place] [facility] [address] [place] [id number] Fredi Escalona DO [address] [place] [address] Procedures Procedure Name Priority Date/Time Associated Diagnosis Comments COLPOSCOPY Routine 06/21/2025 4:25 PM EDT ASCUS with positive high risk HPV cervical POCT , URINE Routine 06/21/2025 4:15 PM EDT ASCUS with positive high risk HPV cervical HBSAG SCREEN Routine 05/30/2025 2:30 PM EDT RAPID PLASMA REAGIN, QUANT Routine 05/30/2025 2:30 PM EDT HIV AB/P24 AG WITH REFLEX Routine 05/30/2025 2:30 PM EDT [facility] PREG QUANT HCG Routine 05/30/2025 2: 30 PM EDT RECURRENT VAGINITIS (HTRX) Routine 05/30/2025 2:13 PM EDT IGP,APTIMA HPV,AGE GDLN Routine 05/30/2025 1:37 PM EDT PAP SMEAR Routine 05/30/2025 12:00 AM EDT from Last 3 Months Results * Colposcopy (06/21/2025 4:25 PM EDT) [...] return in 6 months for Repeat Pap. us Fredi Escalona DO IN CLINIC/BEDSIDE ORDERABLES Fin al Result * POCT , urine manually resulted (06/21/2025 4:15 PM EDT) Preg Test, Ur Negative Negative Urine 06/21/2025 4:15 PM EDT [facility] DO POINT OF CARE TEST ENTER/EDIT OR DERABLES Final Result * HBSAG SCREEN (05/30/2025 2:30 PM EDT) Pathologist [facility] HBSAG SCREEN Negative Negative [facility] Comment: Performed at: [address] [id number] Roll Slicing Machine Tender: Angel Cook PhD, Phone: [phone] 05/30/2025 2:30 PM EDT 05/30/2025 2:30 PM EDT Narrative [facility] - 05/31/2025 11:10 AM EDT [facility] DO LAB BLOOD ORDERABLES Final Resul t [facility] * RAPID PLASMA REAGIN, QUANT (05/30/2025 2:30 PM EDT) [facility] RAPID PLASMA REAGIN, QUANT Non Reactive NonRea<1: 1 titer [facility] Comment: Please Note: This test does not meet current guidelines for screening and diagnosis of syphilis. This test is intended for following treatment response in patients being treated for syphilis infection. To screen for syphilis infection, a reflex cascade that includes both RPR and a treponema-specific assay should be utilized, such as Treponema pallidum (Syphilis) Screening [place] (439418) or Rapid Plasma Reagin (RPR) Test With Reflex to Quantitative RPR and Confirmatory Treponema pallidum Antibodies (544151). Performed at: [address] [id number] Roll Slicing Machine Tender: Angel Cook PhD, Phone: [phone] 05/30/2025 2:30 PM EDT 05/30/2025 2:30 PM EDT Narrative [facility] - 05/31/2025 11:10 AM EDT Fredi Iqra DO LAB BLOOD ORDERABLES Final Resul t Performing Organization Address [facility]/ZIP Co de Phone Number [facility] * HIV AB/P24 AG WITH REFLEX (05/30/2025 2:30 PM EDT) HIV AB/P24 AG SCREEN Non Reactive Non Reactive [facility] Comment: HIV-1/HIV-2 antibodies and HIV-1 p24 antigen were NOT detected. There is no laboratory evidence of HIV infection. HIV Negative Performed at: - [address] [id number] Roll Slicing Machine Tender: Angel Cook PhD, Phone: [phone] 05/30/2025 2:30 PM EDT 05/30/2025 2:30 PM EDT Narrative [facility] - 05/31/2025 7:07 AM EDT Fredi Iqra DO LAB BLOOD ORDERABLES Final Resul t Performing Organization Address [facility] de Phone Number [facility] * [facility] PREG QUANT HCG (05/30/2025 2:30 PM EDT) Pathologist [facility] HCG QUANTITATIVE 2 mIU/mL [facility] Comment: 5-50 0.2-1 WEEK 50-500 1-2 WEEKS 100-5,000 2-3 WEEKS 500-10,000 3-4 WEEKS 1,000-50,000 4-5 WEEKS 10,000-100,000 5-6 WEEKS 15,000-200,000 6-8 WEEKS 10,000-100,000 2-3 MONTHS 05/30/2025 2:30 PM EDT 05/30/2025 2:30 PM EDT Narrative [facility] - 05/30/2025 3:00 PM EDT us Fredi Iqra DO [facility] Final Result Performing Organization Address City/[facility]/ZIP Co de Phone Number [facility] * (ABNORMAL) RECURRENT VAGINITIS (HTRX) (05/30/2025 2:13 PM EDT) [facility] ATOPOBIUM VAGINAE 0 19.961 - 24.689 ppm 05/31/2025 6:09 AM EDT [facility] ATOPOBIUM VAGINAE Not Detected 19.961 - 24.689 ppm 05/31/2025 6:09 AM EDT [facility] BVAB 2,3 (BACTERIAL VAGINOSIS ASSOCIATED BACTERIA 2, 3); MOBILUNCUS SPP 24.756(A) 19.961 - 24.689 ppm 05/31/2025 6:09 AM EDT [facility] BVAB 2,3 (BACTERIAL VAGINOSIS ASSOCIATED BACTERIA 2, 3); MOBILUNCUS SPP Detected(A) 19.961 - 24.689 ppm 05/31/2025 6:09 AM EDT [facility] JESSI ALBICANS, PARAPSILOSIS, TROPICALIS 0 23.000 - 30.347 ppm 05/31/2025 6:09 AM EDT [facility] JESSI ALBICANS, PARAPSILOSIS, TROPICALIS Not Detected 23.000 - 30.347 ppm 05/31/2025 6:09 AM EDT [facility] JESSI GLABRATA 0 23.000 - 31.618 ppm 05/31/2025 6:09 AM EDT [facility] JESSI GLABRATA Not Detected 23.000 - 31.618 ppm 05/31/2025 6:09 AM EDT [facility] JESSI KRUSEI 0 23.000 - 30.873 ppm 05/31/2025 6:09 AM EDT [facility] JESSI KRUSEI Not Detected 23.000 - 30.873 ppm 05/31/2025 6:09 AM EDT [facility] CHLAMYDIA TRACHOMATIS 0 23.000 - 31.586 ppm 05/31/2025 6:09 AM EDT [facility] CHLAMYDIA TRACHOMATIS Not Detected 23.000 - 31.586 ppm 05/31/2025 6:09 AM EDT [facility] GARDNERELLA VAGINALIS 29.203(A) 19.961 - 24.689 ppm 05/31/2025 6:09 AM EDT [facility] GARDNERELLA VAGINALIS Detected(A) 19.961 - 24.689 ppm 05/31/2025 6:09 AM EDT [facility] (TYPES 1, 2) 30.752(A) 19.961 - 24.689 ppm 05/31/2025 6:09 AM EDT [facility] (TYPES 1, 2) Detected(A) 19.961 - 24.689 ppm 05/31/2025 6:09 AM EDT [facility] NEISSERIA GONORRHOEAE 0 23.000 - 32.587 ppm 05/31/2025 6:09 AM EDT [facility] NEISSERIA GONORRHOEAE Not Detected 23.000 - 32.587 ppm 05/31/2025 6:09 AM EDT [facility] TRICHOMONAS VAGINALIS 0 23.000 - 31.995 ppm 05/31/2025 6:09 AM EDT [facility] TRICHOMONAS VAGINALIS Not Detected 23.000 - 31.995 ppm 05/31/2025 6:09 AM EDT [facility] MYCOPLASMA GENITALIUM 0 19.961 - 24.689 ppm 05/31/2025 6:09 AM EDT [facility] MYCOPLASMA GENITALIUM Not Detected 19.961 - 24.689 ppm 05/31/2025 6:09 AM EDT [facility] ERMB, C; MEFA 20.821(A) 23.000 - 27.500 ppm 05/31/2025 6:09 AM EDT [facility] ERMB, C; MEFA Detected(A) 23.000 - 27.500 ppm 05/31/2025 6:09 AM EDT [facility] TET B, TET M 20.859(A) 23.000 - 27.500 ppm 05/31/2025 6:09 AM EDT [facility] TET B, TET M Detected(A) 23.000 - 27.500 ppm 05/31/2025 6:09 AM EDT [facility] 05/30/2025 2:13 PM EDT 05/31/2025 1:35 AM EDT us Fredi Escalona DO LAB BLOOD ORDERABLES Final Resul t [facility] [address] [place] [address] * (ABNORMAL) IGP,APTIMA HPV,AGE GDLN (05/30/2025 1:37 PM EDT) AGE GDLN ACOG TESTING Note . [facility] Comment: TESTS RESULT FLAG UNITS REF RANGE LAB Clinician Provided Cytology Information Source.............Cervix;Endocervix No. of containers..01 ThinPrep Vial Age Algo ACOG Magi... - 01 FLAG LEGEND: L-Low Normal,H-High Normal,LL-Alert Low,HH-Alert High <-Panic Low,>-Panic High,A-Abnormal,AA-Critical Abnormal Performed at: 01 =G [address] [id number] Noy Baez MD, IGP, RFX APTIMA HPV ASCU Note(A) . [facility] Comment: TESTS RESULT FLAG UNITS REF RANGE LAB DIAGNOSIS: [A] 02 EPITHELIAL CELL ABNORMALITY. ATYPICAL SQUAMOUS CELLS OF UNDETERMINED SIGNIFICANCE (ASC-US). Specimen adequacy: 02 Satisfactory for evaluation. Endocervical and/or squamous metaplastic cells (endocervical component) are present. Performed by: Coretta Rosenthal, Customer Service Manager Electronically si... 02 Laila Jenkins MD, Pathologist . 02 Pathologist ICD10: 02 R87.610 Note: Note 02 The Pap smear is a screening test designed to aid in the detection of premalignant and malignant conditions of the uterine cervix. It is not a diagnostic procedure and should not be used as the sole means of detecting cervical cancer. Both false-positive and false-negative reports do occur. Test Methodology: Note 02 This liquid based ThinPrep(R) pap test was screened with the use of an image guided system. . 02 See below for HPV testing results. FLAG LEGEND: L-Low Normal,H-High Normal,LL-Alert Low,HH-Alert High <-Panic Low,>-Panic High,A-Abnormal,AA-Critical Abnormal Performed at: [address] [id number] Noy Baez MD, HPV APTIMA Positive( A) Negative TB Comment: This nucleic acid amplification test detects fourteen high- risk HPV types (16,18,31,33,35,39,45,51,52,56,58,59,66,68) without differentiation. Performed at: =G - [facility] [address] [id number] Roll Slicing Machine Tender: Noy Baez MD, Phone: [phone] Performed at: - [facility] [address] [place] [id number] Roll Slicing Machine Tender: Noy Baez MD, Phone: [phone] 05/30/2025 1:37 PM EDT 05/31/2025 7:26 AM EDT Narrative [facility] - 06/03/2025 11:08 AM EDT BRUSH-SPATULA CERVIX ENDOCERVIX Fredi Escalona DO LAB BLOOD ORDERABLES Final [facility]ul t [facility] * (ABNORMAL) Pap Smear (05/30/2025 12:00 AM EDT) Swab Cervical swab / Unknown Iqra Nurse [facility] LAB CYTOLOGY ORDERABLES Final Result EXTERNAL LAB from Last 3 Months Insurance [employer]
== END 2025-06-21 15:42 | disposition home or self-care (01) ==
LOC: LAB 15:41
PROVIDERS: Visit Provider Obstetrics & Gynecology
DX: R87.810 Cervical high risk human papillomavirus (HPV) DNA test positive (principal)
CPT/HCPCS: 88305; 88342; 88360